=== PATIENT | female | born 1985 | race American Indian/Alaskan Native ===

== ENCOUNTER 2019-12-09 11:59 | Outpatient (CLI) | payer MEDICAID | END 2019-12-09 12:00 | disposition home or self-care (01) | LOC: SLR 11:59 | PROVIDERS: ATTEND Otolaryngology | DX: G47.33 Obstructive sleep apnea (adult) (pediatric) (principal); R40.0 Somnolence; E66.9 Obesity, unspecified | CPT/HCPCS: G0399 ==

== ENCOUNTER 2020-02-06 11:00 | Outpatient (CLI) | payer MEDICAID | END 2020-02-06 11:01 | disposition home or self-care (01) | LOC: SLR 11:00 | PROVIDERS: ATTEND Otolaryngology | DX: G47.33 Obstructive sleep apnea (adult) (pediatric) (principal) | CPT/HCPCS: 95811 ==

== ENCOUNTER 2020-12-15 17:27 | Emergency (ER) | payer OTHER, MEDICAID ==
[2020-12-15] MEDS ORDERED: diphenhydrAMINE 50 MG/ML VIAL IV ONE (19:37)
[2020-12-15] MEDS ORDERED: METOCLOPRAMIDE 10 MG/2 ML INJ IV ONE (19:37)
[2020-12-15] MEDS ORDERED: FAMOTIDINE 20 MG/2 ML INJ IV ONE (19:37)
[2020-12-15] MEDS ORDERED: SODIUM CHLORIDE 0.9% 1000 ML 1,000 ML IV ONE (19:37)
[2020-12-15] MEDS ORDERED: HYDROmorphone 1 MG/1 ML INJ IV ONE (19:38)
[2020-12-15 20:16] LABS: Basophils % (Auto) 0.7 % (0.0-1.8); Eosinophils % (Auto) 0.8 % (0.0-4.3); Hematocrit 44.2 % (30.3-42.9); Hemoglobin 15.2 gm/dl (10.1-14.3); Lymphocytes # (Auto) 1.7 K/mm3 (1.2-5.4); Lymphocytes % (Auto) 38.8 % (13.4-35.0); Mean Corpuscular HGB Conc 34 % (30-34); Mean Corpuscular Volume 85 fl (79-97); Monocytes # (Auto) 0.5 K/mm3 (0.0-0.8); Monocytes % (Auto) 12.2 % (0.0-7.3); Platelet Count 261 K/mm3 (140-440); Red Blood Count 5.23 M/mm3 (3.65-5.03); Red Cell Distribution Width 14.9 % (13.2-15.2)
[2020-12-15 20:49] LABS: Alanine Aminotransferase TNR units/L (7-56); BUN/Creatinine Ratio TNR; Blood Urea Nitrogen TNR mg/dL (7-17); Calcium TNR mg/dL (8.4-10.2)
[2020-12-15 20:50] LABS: Albumin TNR g/dL (3.9-5); Hemolysis Index TNR
--- NOTE | 2020-12-15 21:15 | Emergency Department Report ---
ED Abdominal Pain HPI - General Chief Complaint: Nausea/Vomiting/Diarrhea Stated Complaint: UNABLE TO HOLD FOOD DOWN Source: patient Mode of arrival: Wheelchair Limitations: No Limitations - History of Present Illness Initial Comments: Patient is a 35-year-old -[place] female with a history of seizures and migraine headaches who presented to the ED with acute onset persistent diffuse abdominal pain with nausea and vomiting and diarrhea for the last 5 days. Patient states that the symptoms have worsened in the last 2 days such that she has not been able to keep anything down not take any medications. Patient states that she had COVID-19 viral infection over 1 month ago and recovered fully and that 24 hours ago she tested negative for COVID-19 viral infection. Patient states that the pain in the upper abdomen is diffuse and radiates to the epigastric area with a burning sensation. Patient denies dysuria, urinary frequency and urgency, vaginal bleeding, vaginal discharge, chest pain, shortness of breath, fever, chills, cough, sore throat, change in vision, constipation, vaginal bleeding or hematemesis and hematochezia. MD Complaint: abdominal pain, other (nausea and vomiting) -: Sudden, days(s) (5) Location: RUQ, epigastric Radiation: RUQ, epigastric, R flank Migration to: no migration, RUQ, epigastric Severity: severe Severity scale (0 -10): 10 Quality: aching, sharp Consistency: constant Improves With: nothing Worsens With: eating, vomiting Associated Symptoms: denies other symptoms, nausea, vomiting, diarrhea, anorexia - Related Data LMP Date: 12/07/20 Home Medications Medication Instructions Recorded Confirmed Last Taken Cholecalciferol (Vitamin D3) 1 dose IM Q8W 11/13/20 11/13/20 Unknown [Vitamin D3] Previous Rx's Medication Instructions Recorded Last Taken Type Dicyclomine [Bentyl] 20 mg PO Q6H PRN #30 tablet 12/16/20 Unknown Rx Doxycycline Hyclate 100 mg PO Q12H #20 tablet.dr 12/16/20 Unknown Rx Famotidine [Pepcid] 20 mg PO BID #60 tablet 12/16/20 Unknown Rx Ketorolac [Toradol] 10 mg PO Q8H PRN #20 tablet 12/16/20 Unknown Rx Ondansetron [Zofran Odt] 4 mg PO Q6HR PRN #20 tab.rapdis 12/16/20 Unknown Rx Potassium Chloride [K-Dur] 20 meq PO BID #20 tab 12/16/20 Unknown Rx Allergies Allergy/AdvReac Type Severity Reaction Status Date / Time gelatin Allergy Anaphylaxis Verified 11/13/20 17:49 morphine Allergy Anaphylaxis Verified 11/13/20 17:49 ED Review of Systems ROS: Stated complaint: UNABLE TO HOLD FOOD DOWN Other details as noted in HPI Constitutional: malaise, weakness Eyes: denies: eye pain, eye discharge, vision change ENT: denies: ear pain, throat pain Respiratory: denies: cough, shortness of breath, wheezing Cardiovascular: denies: chest pain, palpitations Endocrine: no symptoms reported Gastrointestinal: abdominal pain, nausea, vomiting, diarrhea Genitourinary: denies: urgency, dysuria, discharge Musculoskeletal: denies: back pain, joint swelling, arthralgia Skin: denies: rash, lesions Neurological: denies: headache, weakness, paresthesias Psychiatric: denies: anxiety, depression Hematological/Lymphatic: denies: easy bleeding, easy bruising ED Past Medical Hx - Past Medical History Previous Medical History?: Yes Hx Headaches / Migraines: Yes (MIGRAINES) Hx Seizures: Yes (X1 IN 2015 , UNKNOWN REASON , NEVER ON MEDS) - Surgical History Past Surgical History?: No - Social History Smoking Status: Never Smoker - Medications Home Medications: Home Medications Medication Instructions Recorded Confirmed Last Taken Type Cholecalciferol (Vitamin D3) 1 dose IM Q8W 11/13/20 11/13/20 Unknown History [Vitamin D3] Dicyclomine [Bentyl] 20 mg PO Q6H PRN #30 tablet 12/16/20 Unknown Rx Doxycycline Hyclate 100 mg PO Q12H #20 tablet.dr 12/16/20 Unknown Rx Famotidine [Pepcid] 20 mg PO BID #60 tablet 12/16/20 Unknown Rx Ketorolac [Toradol] 10 mg PO Q8H PRN #20 tablet 12/16/20 Unknown Rx Ondansetron [Zofran Odt] 4 mg PO Q6HR PRN #20 tab.rapdis 12/16/20 Unknown Rx Potassium Chloride [K-Dur] 20 meq PO BID #20 tab 12/16/20 Unknown Rx ED Physical Exam - General Limitations: No Limitations General appearance: alert, in no apparent distress - Head Head exam: Present: atraumatic, normocephalic, normal inspection - Eye Eye exam: Present: normal appearance, PERRL, EOMI Pupils: Present: normal accommodation - ENT ENT exam: Present: normal exam, normal orophraynx, mucous membranes moist, TM's normal bilaterally, normal external ear exam - Neck Neck exam: Present: normal inspection, full ROM - Respiratory Respiratory exam: Present: normal lung sounds bilaterally. Absent: respiratory distress, wheezes, rales, rhonchi, chest wall tenderness, accessory muscle use, decreased breath sounds, prolonged expiratory - Cardiovascular Cardiovascular Exam: Present: normal rhythm, tachycardia, normal heart sounds. Absent: systolic murmur, diastolic murmur, rubs, gallop - GI/Abdominal GI/Abdominal exam: Present: soft, tenderness (Palpable diffuse upper abdominal tenderness), normal bowel sounds. Absent: guarding, rebound, hyperactive bowel sounds, hypoactive bowel sounds, mass - Extremities Exam Extremities exam: Present: normal inspection, full ROM, normal capillary refill - Back Exam Back exam: Present: normal inspection, full ROM. Absent: tenderness, CVA te nderness (R), CVA tenderness (L), muscle spasm, paraspinal tenderness, vertebral tenderness - Neurological Exam Neurological exam: Present: alert, oriented X3, CN II-XII intact, normal gait, reflexes normal - Psychiatric Psychiatric exam: Present: normal affect, normal mood - Skin Skin exam: Present: warm, dry, intact, normal color. Absent: rash ED Course Vital Signs 12/15/20 12/15/20 12/16/20 17:56 22:23 01:45 Temperature 98.2 F 97.7 F Pulse Rate 117 H 68 Respiratory 18 12 18 Rate Blood Pressure 112/76 Blood Pressure 97/74 [Left] O2 Sat by Pulse 98 100 Oximetry ED Medical Decision Making - Lab Data Result diagrams: 12/15/20 20:00 12/15/20 21:55 - Radiology Data Radiology results: report reviewed, image reviewed [address] [address] Cat Scan Report Signed Patient: SAMEER BUSTOS MR#: [id number] [birth year] : 1985 Acct:[id number] Age/Sex: 35 / F ADM Date: 12/15/20 Loc: ED Attending Dr: Ordering Physician: TRUDY HERRERA Date of Service: 12/15/20 Procedure(s): CT abdomen pelvis w con Accession Number(s): [id number] cc: TRUDY HERRERA CT ABDOMEN AND PELVIS WITH CONTRAST INDICATION: abdominal pain. TECHNIQUE: Axial CT images were obtained through the abdomen and pelvis after 100 cc IV contrast. All CT scans at this location are performed using CT dose reduction for ALARA by means of automated exposure control. COMPARISON: None available. FINDINGS: LOWER CHEST: Mild patchy groundglass parenchymal disease lingula and both lower lobes is nonspecific but may be secondary to early viral pneumonia LIVER: No significant abnormality. Tiny 1 cm cyst anterior hepatic dome. GALLBLADDER: No significant abnormality. BILE DUCTS: No significant abnormality. PANCREAS: No significant abnormality. SPLEEN: No significant abnormality. ADRENALS: No significant abnormality. RIGHT KIDNEY and URETER: No significant abnormality. LEFT KIDNEY and URETER: No significant abnormality. STOMACH and SMALL BOWEL: Gastric bypass surgery. COLON: No significant abnormality. APPENDIX: Normal. PERITONEUM: No free fluid. No free air. No fluid collection. LYMPH NODES: No significant adenopathy. AORTA and ARTERIES: No significant abnormality. IVC and VEINS: No significant abnormality. URINARY BLADDER: No significant abnormality. REPRODUCTIVE ORGANS: Intrauterine IUD ADDITIONAL FINDINGS: None. SKELETAL SYSTEM: No significant abnormality. IMPRESSION: 1. Possible early pneumonia. Recommend Covid testing. 2. No acute inflammatory process or bowel obstruction Signer Name: Abe Biswas MD Signed: 12/16/2020 12:46 AM Workstation Name: [id number] Transcribed By: TL Dictated By: Abe Biswas MD Electronically Authenticated By: Abe Biswas MD Signed Date/Time: 12/16/2045 DD/ TD/TT: Print Cancel - Medical Decision Making This is a 35-year-old -[place] female with a history of seizures and migraine headaches who presented to the ED with acute onset persistent diffuse abdominal pain with nausea and vomiting and diarrhea for the last 5 days. Patient states that the symptoms have worsened in the last 2 days such that she has not been able to keep anything down not take any medications. Patient states that she had COVID-19 viral infection over 1 month ago and recovered full y and that 24 hours ago she tested negative for COVID-19 viral infection. Patient states that the pain in the upper abdomen is diffuse and radiates to the epigastric area with a burning sensation. In the ED, patient is alert and oriented x3 and is not in any distress. Lab test results were reviewed and are all nonactionable except for mild hypokalemia of 3.0 mmol/L. Abdomen pelvis CT scan with contrast showed possible early pneumonia. Recommend Covid testing. No other acute inflammatory process or bowel obstruction. Patient was treated for pain in the ED and also given normal saline 1 L IV bolus x1. Patient also received potassium chloride 40 mEq p.o. x1. On reevaluation, patient's pain is well controlled medications. Patient has not had any nausea or vomiting while in the ED and patient passed oral fluid challenge in the ED. Patient also received Rocephin 1 g IV and azithromycin 500 mg p.o. x1 in the ED empirically for suspected pneumonia. On reevaluation, patient is hemodynamically stable, tachycardia resolved and patient is afebrile. Patient was therefore discharged home on medications and advised to follow-up with her primary care physician in 5 to 7 days for reevaluation or return to the ED immediately if symptoms get worse. - Differential Diagnosis Gastroenteritis; Dehydration; pneumonia; kidney stone; UTI; Critical care attestation.: If time is entered above; I have spent that time in minutes in the direct care of this critically ill patient, excluding procedure time. ED Disposition Clinical Impression: Nausea and vomiting in adult patient, Acute hypokalemia Abdominal pain Qualifiers: Abdominal location: generalized Qualified Code(s): R10.84 - Generalized abdominal pain Community acquired pneumonia Qualifiers: Laterality: unspecified laterality Qualified Code(s): J18.9 - Pneumonia, unspecified organism GERD (gastroesophageal reflux disease) Qualifiers: Esophagitis presence: esophagitis presence not specified Qualified Code(s): K21.9 - Gastro-esophageal reflux disease without esophagitis Disposition: 01 HOME / SELF CARE / HOMELESS Is pt being admited?: No Does the pt Need Aspirin: No Condition: Stable Instructions: Bacterial Pneumonia (ED), Abdominal Pain, Adult, [id number], Community-Acquired Pneumonia, Adult, [id number], Nausea and Vomiting, Adult, [id number], Gastroesophageal Reflux Disease, Adult, [id number], Hypokalemia Additional Instructions: All lab test results were reviewed and are all nonactionable. Abdomen pelvis CT scan with contrast showed no acute abnormalities in the abdomen and pelvis but an incidental finding of suspected early pneumonia in both lower lobes. Therefore take medications with food, drink plenty of fluids, follow-up with your primary care physician in 5 to 7 days for reevaluation. Return to the ED immediately if symptoms get worse Prescriptions: Dicyclomine [Bentyl] 20 mg PO Q6H PRN #30 tablet PRN Reason: Abdominal pain Doxycycline Hyclate 100 mg PO Q12H #20 tablet. Potassium Chloride [K-Dur] 20 meq PO BID #20 tab Famotidine [Pepcid] 20 mg PO BID #60 tablet Ketorolac [Toradol] 10 mg PO Q8H PRN #20 tablet PRN Reason: Pain Ondansetron [Zofran Odt] 4 mg PO Q6HR PRN #20 tab.rapdis PRN Reason: Nausea Forms: Work/School Release Form(ED) Time of Disposition: 02:38 Print Language: SOMALI
[2020-12-15 22:31] LABS: Alanine Aminotransferase 10 units/L (7-56); Albumin 4.2 g/dL (3.9-5); Blood Urea Nitrogen 6 mg/dL (7-17); Hemolysis Index 4
[2020-12-15 22:34] LABS: BUN/Creatinine Ratio 10
--- NOTE | 2020-12-16 00:50 | Cat Scan Report ---
CT ABDOMEN AND PELVIS WITH CONTRAST INDICATION: abdominal pain. TECHNIQUE: Axial CT images were obtained through the abdomen and pelvis after 100 cc IV contrast. All CT scans at this location are performed using CT dose reduction for ALARA by means of automated exposure contr ol. COMPARISON: None available. FINDINGS: LOWER CHEST: Mild patchy groundglass parenchymal disease lingula and both lower lobes is nonspecific but may be secondary to early viral pneumonia LIVER: No significant abnormality. Tiny 1 cm cyst anterior hepatic dome. GALLBLADDER: No significant abnormality. BILE DUCTS: No significant abnormality. PANCREAS: No significant abnormality. SPLEEN: No significant abnormality. ADRENALS: No significant abnormality. RIGHT KIDNEY and URETER: No significant abnormality. LEFT KIDNEY and URETER: No significant abnormality. STOMACH and SMALL BOWEL: Gastric bypass surgery. COLON: No significant abnormality. APPENDIX: Normal. PERITONEUM: No free fluid. No free air. No fluid collection. LYMPH NODES: No significant adenopathy. AORTA and ARTERIES: No significant abnormality. IVC and VEINS: No significant abnormality. URINARY BLADDER: No significant abnormality. REPRODUCTIVE ORGANS: Intrauterine IUD ADDITIONAL FINDINGS: None. SKELETAL SYSTEM: No significant abnormality. IMPRESSION: 1. Possible early pneumonia. Recommend Covid testing. 2. No acute inflammatory process or bowel obstruction Signer Name: Abe Biswas MD Signed: 12/16/2020 12:46 AM Workstation Name: [id number]
[2020-12-16] MEDS ORDERED: POTASSIUM CHLORIDE ER 20 MEQ TAB PO ONE (00:59)
[2020-12-16] MEDS ORDERED: cefTRIAXone/NS 1 GM/50 ML 1 GM/50 ML BAG IV ONE (01:00)
[2020-12-16] MEDS ORDERED: ONDANSETRON 4 MG/2 ML INJ IV ONE (01:00)
[2020-12-16] MEDS ORDERED: AZITHROMYCIN 250 MG TAB PO ONE (01:00)
[2020-12-16 01:03] LABS: Bacteria,Urine 2+ /HPF (Negative); Bilirubin,Urine NEG (Negative); Color,Urine Yellow (Yellow); Mucus,Urine 3+ /HPF
[2020-12-16 01:05] LABS: Blood,Urine Small (Negative)
[2020-12-16] MEDS ORDERED: KETOROLAC 30 MG/1 ML INJ IV ONE (01:05)
[2020-12-16] MEDS ORDERED: PROCHLORPERAZINE EDISYLATE 10 MG/2 ML VIAL IV ONE (01:05)
[2020-12-16 03:03] VITALS: BP 114/84
== END 2020-12-16 03:03 | disposition home or self-care (01) ==
LOC: ED 17:27
DX: K21.9 Gastro-esophageal reflux disease without esophagitis (principal); R11.2 Nausea with vomiting, unspecified; J18.8 Other pneumonia, unspecified organism; E87.6 Hypokalemia; G43.909 Migraine, unspecified, not intractable, without status migrainosus; R56.9 Unspecified convulsions; Z88.5 Allergy status to narcotic agent; Z91.018 Allergy to other foods
CPT/HCPCS: 36415; 74177; 80053; 81001; 84703; 85025; 96361; 96365; 96375; 99284; J0696; J0780; J1170; J1200; J1885; J2405; J2765; J7030; Q9967